=== PATIENT | male | born 2000 | race Caucasian/White ===

== ENCOUNTER 2023-06-05 10:37 | Day surgery (SDC) | payer BC ==
[~2023-06-05 10:37] MED LIST: Lactated Ringers 1,000 ML IV SCH; Sodium Chloride 0.9% 10 ML Syringe FLUSH PRN; Sodium Chloride 0.9% 10 ML Syringe FLUSH SCH
[2023-06-05] MEDS ORDERED: EPINEPHrine 1 MG/ML SDV ONE ×2 (10:56→10:57)
[2023-06-05] MEDS ORDERED: Dexmedetomidine 200 MCG/2 ML SDV ONE (10:56)
[2023-06-05] MEDS ORDERED: Dexamethasone 4 MG/ML 5 ML MDV ONE (10:56)
[2023-06-05] MEDS ORDERED: Ropivacaine 0.5% 5 MG/ML 30 ML SDV ONE (10:57)
[2023-06-05] MEDS ORDERED: Midazolam 1 MG/ML 2 ML SDV ONE (11:09)
[2023-06-05] MEDS ORDERED: fentaNYL 100 MCG/2 ML SDV ONE (11:09)
[2023-06-05] MEDS ORDERED: Lidocaine 1% 8 ML ONE (12:47)
[2023-06-05] MEDS ORDERED: Propofol 200 MG/20 ML SDV ONE (12:47)
[2023-06-05] MEDS ORDERED: Ondansetron 4 MG/2 ML SDV ONE (13:07)
[2023-06-05] MEDS ORDERED: ceFAZolin 2 GM Vial ONE (13:11)
[2023-06-05] MEDS ORDERED: Lactated Ringers 1,000 ML ONE (13:26)
== END 2023-06-05 15:30 | disposition home or self-care (01) ==
LOC: JD.SDS 10:37
PROVIDERS: ATTEND Orthopaedic Surgery
DX: S42.022A Displaced fracture of shaft of left clavicle, initial encounter for closed fracture (principal); Z79.899 Other long term (current) drug therapy; V86.95XA Unspecified occupant of 3- or 4- wheeled all-terrain vehicle (ATV) injured in nontraffic accident, initial encounter
CPT/HCPCS: 23515; 64415; 76000; C1713; J0171; J0690; J1100; J2250; J2405; J2704; J2795; J3010; J7120; 00450; J3490